=== PATIENT | male | born 1955 | race Caucasian/White ===

== ENCOUNTER 2020-09-04 11:22 | Emergency (ER) | payer OTHER ==
[~2020-09-04] VITALS: Ht 172.7 cm; Wt 56.7 kg
[2020-09-04 12:05] LABS: HEMATOCRIT 51.4 % (42.0-52.0); HEMOGLOBIN 17.2 gm/dL (14.0-18.0); MCH 31.7 pg (26.0-34.0); MCHC 33.6 g/dL (28.0-37.0); MCV 94.4 fL (80.0-100.0); MPV 9.1 fl. (7.2-11.1); NUCLEATED RBCS 0 /100WBC; PLATELET COUNT* 177 thou/uL (150-400); RBC 5.44 mil/uL (4.50-6.00); RDW-CV 13.4 % (10.5-14.5); WBC 4.9 thou/uL (4.0-11.0)
[2020-09-04] MEDS ORDERED: VENTOLIN HFA 1818 GM INH (12:05)
[2020-09-04] MEDS ORDERED: ZPAK PO (12:05)
[2020-09-04] MEDS ORDERED: PREDNISONE 20 M20 M1 PO (12:05)
[2020-09-04 12:12] LABS: CALCIUM 8.7 mg/dL (8.5-10.1); CREATININE 1.1 mg/dL (0.6-1.3); POTASSIUM 3.7 mmol/L (3.5-5.1)
[2020-09-04 12:23] LABS: ALBUMIN 3.9 g/dL (3.4-5.0); TOTAL BILIRUBIN 0.9 mg/dL (<0.1-1.0); TOTAL PROTEIN 7.7 g/dL (6.4-8.2)
[2020-09-04 12:41] VITALS: BP 130/83
[2020-09-04 13:11] LABS: ABSOLUTE EOSINOPHILS 0.5 thou/uL (0.0-0.7); ABSOLUTE LYMPHOCYTES 1.9 thou/uL (0.8-5.3); ABSOLUTE MONOCYTES 0.1 thou/uL (0.0-1.2); ABSOLUTE NEUTROPHILS 2.5 thou/uL (1.6-8.1); PLATELET ESTIMATE ADEQUATE
[2020-09-04 13:12] LABS: ATYPICAL LYMPHS 18 %
--- NOTE | 2020-09-04 15:34 | EKG ---
[place] [address] ELECTROCARDIOGRAM REPORT Name: JALEESA BARBA [id number] Admission: 09/04/20 Attend Phys: Discharge: 09/04/20 Date of : 57 Date of Service: 09/04/20 1147 Report #: [id number] THIS REPORT FOR: //name// 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
== END 2020-09-04 12:42 | disposition home or self-care (01) ==
LOC: M.ERS 11:22
PROVIDERS: Family Medicine
DX: J40 Bronchitis, not specified as acute or chronic (principal); Z20.828 Contact with and (suspected) exposure to other viral communicable diseases

== ENCOUNTER → 2021-10-24 | Outpatient (CLI) | payer BC, OTHER ==
[~2021-10-24] MED LIST: PREDNISONE 20 M20 M1 PO; VENTOLIN HFA 1818 GM INH; ZPAK PO
== END ==
LOC: M.ULTRA 10:24
PROVIDERS: ATTEND Nurse Practitioner Adult Health
DX: K76.89 Other specified diseases of liver (principal); B19.20 Unspecified viral hepatitis C without hepatic coma

== ENCOUNTER → 2021-11-02 | Outpatient (CLI) | payer BC, OTHER | LOC: M.LAB 10:03 → M.MRI 11:30 | PROVIDERS: ATTEND Nurse Practitioner Adult Health | DX: K76.89 Other specified diseases of liver (principal) ==

== ENCOUNTER → 2021-11-15 | Outpatient (CLI) | payer BC, OTHER ==
[2021-11-15 17:01] LABS: HEMATOCRIT 50.6 % (42.0-52.0); HEMOGLOBIN 16.8 gm/dL (14.0-18.0); MCHC 33.3 g/dL (28.0-37.0); MCV 96.1 fL (80.0-100.0); MPV 9.5 fl. (7.2-11.1); RBC 5.27 mil/uL (4.50-6.00); RDW-CV 13.6 % (10.5-14.5); WBC 5.5 thou/uL (4.0-11.0)
[2021-11-15 17:12] LABS: INR 1.1; PROTIME 11.6 Seconds (9.20-11.50)
[2021-11-15 17:18] LABS: CALCIUM 8.9 mg/dL (8.5-10.1); CREATININE 0.9 mg/dL (0.6-1.3); POTASSIUM 4.4 mmol/L (3.5-5.1); TOTAL BILIRUBIN 0.7 mg/dL (<0.1-1.0); TOTAL PROTEIN 8.2 g/dL (6.4-8.2)
== END ==
LOC: M.LAB 16:28
PROVIDERS: ATTEND Nurse Practitioner Adult Health
DX: B19.20 Unspecified viral hepatitis C without hepatic coma (principal); K76.9 Liver disease, unspecified